=== PATIENT | male | born 1950 | race Caucasian/White ===

== ENCOUNTER 2017-01-15 17:44 | Emergency (ER) | payer MEDICARE ==
[2017-01-15 18:30] LABS: BASOPHILS 0.3 % (0.0-2.0); EOSINOPHILS 2.8 % (0.0-6.0); EOSINOPHILS# 0.2 X 10^3uL (0.0-0.4); HEMATOCRIT 47.8 % (42.0-54.0); HEMOGLOBIN 16.6 g/dL (14.0-18.0); LYMPHOCYTES 28.7 % (20.0-40.0); LYMPHOCYTES# 2.4 X 10^3uL (0.8-3.8); MEAN CELL VOLUME 90.7 fL (80.0-100.0); MEAN CORPUS. HGB CONCENTRATION 34.7 g/dL (32.0-36.0); MEAN CORPUSCULAR HEMOGLOBIN 31.5 pg (29.0-35.0); MEAN PLATELET VOLUME 9.6 fL (7.4-10.4); MONOCYTES 12.7 % (2.0-10.0); MONOCYTES# 1.1 X 10^3uL (0.2-1.0); NEUTROPHILS 55.5 % (54.0-75.0); NEUTROPHILS# 4.8 X 10^3uL (2.6-6.7); PLATELET COUNT 160 X 10^3uL (130-440); RED BLOOD COUNT 5.27 X 10^6uL (4.20-6.10); RED CELL DISTRIBUTION WIDTH 12.7 % (11.5-14.5); WHITE BLOOD COUNT 8.5 X 10^3uL (3.9-10.7)
[2017-01-15] MEDS ORDERED: ONDANSETRON HCL 4 MG/2 ML VIAL ONE (18:34)
[2017-01-15 18:43] LABS: INR 1.1
[2017-01-15 18:47] LABS: ALBUMIN 4.3 g/dL (3.5-5.0); ALKALINE PHOSPHATASE 47 U/L (38-126); ALT 70 U/L (21-72); AST 48 U/L (17-59); BILIRUBIN, DIRECT 0.5 mg/dL (0.0-0.4); BILIRUBIN, TOTAL 1.2 mg/dL (0.2-1.3); BLOOD UREA NITROGEN 16 mg/dL (9-20); CHLORIDE 99 mmol/L (98-107); EST GLOMERULAR FILTRATION RATE > 60 mL/min; GLUCOSE 137 mg/dL (70-100); LIPASE 35 U/L (23-300); POTASSIUM 3.5 mmol/L (3.5-5.1); SODIUM 139 mmol/L (137-145); TOTAL PROTEIN 7.3 g/dL (6.3-8.2)
[2017-01-15 19:08] LABS: ETHYL ALCOHOL < 10 mg/dL (<10)
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
--- NOTE | 2017-01-15 19:41 | CT REPORT ---
Please see CT chest, abdomen and pelvis report, same date. Final Electronic Signature: This report was electronically signed by Gen Lucie MD on 01/15/2017 7: 38 PM. marilee /
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
--- NOTE | 2017-01-17 14:16 | RADIOLOGY REPORT ---
Two AP views of the chest demonstrate the heart, vessels and lungs to be unremarkable. No infiltrate, fluid or pneumothorax is seen. IMPRESSION: Unremarkable AP views of the chest. MTDD
--- NOTE | 2017-01-17 15:11 | RADIOLOGY REPORT ---
A single view of the pelvis demonstrates no displaced fracture or dislocation. The visualized joints appear unremarkable. IMPRESSION: No displaced injury is identified. If clinically indicated, further evaluation and/or follow-up may be of benefit. MITCHELL
--- NOTE | 2017-01-17 15:12 | RADIOLOGY REPORT ---
Three limited views of the left forearm demonstrates no displaced fracture or dislocation. Limited views of the joints are unremarkable. IMPRESSION: No displaced injury is identified. If clinically indicated, further evaluation and/or follow-up may be of benefit. MITCHELL
--- NOTE | 2017-01-17 18:21 | RADIOLOGY REPORT ---
Three views of the left ankle demonstrate a nondisplaced oblique fracture of the distal portion of the left fifth metatarsal. No other fracture or dislocation is identified. The visualized joints appear unremarkable. IMPRESSION: Nondisplaced oblique fracture of the distal shaft of the left fifth metatarsal. The findings were reviewed with Dr. Luke upon completion of the examination. [facility] HOSPITALJuli
== END 2017-01-15 22:22 | disposition short-term general hospital (02) ==
LOC: MERGE 17:44 → ER 17:44
DX: S06.6X9A Traumatic subarachnoid hemorrhage with loss of consciousness of unspecified duration, initial encounter (principal); S00.81XA Abrasion of other part of head, initial encounter; R41.82 Altered mental status, unspecified; S92.355A Nondisplaced fracture of fifth metatarsal bone, left foot, initial encounter for closed fracture; M25.532 Pain in left wrist; R07.81 Pleurodynia; S20.312A Abrasion of left front wall of thorax, initial encounter; S70.211A Abrasion, right hip, initial encounter; S90.512A Abrasion, left ankle, initial encounter; R10.12 Left upper quadrant pain; S90.812A Abrasion, left foot, initial encounter; R29.712 NIHSS score 12; V23.4XXA Motorcycle driver injured in collision with car, pick-up truck or van in traffic accident, initial encounter; Y92.413 State road as the place of occurrence of the external cause
CPT/HCPCS: 70450; 71010; 71260; 72125; 72170; 74177; 80048; 80076; 80320; 83690; 85025; 85610; 96361; 96374; 99285; A0425; A0427; G0390; J2405